=== PATIENT | male | born 2000 | race Two or more races ===

== ENCOUNTER 2021-12-28 15:54 | Observation (INO) ==
[2021-12-28] MEDS ORDERED: SODIUM CHLORIDE 0.9% 500 ML IV STA (16:00)
[2021-12-28 16:37] LABS: Basophils # (auto) 0.07 K/uL (0-0.2); Basophils % (auto) 0.6 %; Eosinophils # (auto) 0.21 K/uL (0-0.50); Eosinophils % (auto) 1.7 %; Hematocrit (blood only) 45.7 % (40.1-51.0); Hemoglobin 15.4 g/dl (14.0-18.0); Immature Granulocytes # (auto) 0.04 K/uL (0.00-0.02); Immature Granulocytes % (auto) 0.3 %; Lymphocytes # (auto) 2.57 K/uL (1.2-3.4); Lymphocytes % (auto) 21.3 %; Mean Corpuscular Hemoglobin 27.3 pg (25.0-34.0); Mean Corpuscular Hgb Conc 33.7 g/dL (32.0-36.0); Mean Corpuscular Volume 80.9 fL (80.0-100.0); Mean Platelet Volume 10.1 fL (9.4-12.4); Monocytes # (auto) 0.77 K/uL (0.24-0.82); Monocytes % (auto) 6.4 %; Neutrophils # (auto) 8.41 K/uL (1.4-6.5); Neutrophils % (auto) 69.7 %; Platelet Count 266 K/uL (130-400); RDW Coefficient of Variation 12.4 % (11.5-14.5); RDW Standard Deviation 36.4 fL (36.4-46.3); Red Blood Count 5.65 M/uL (4.63-6.08); White Blood Count 12.07 K/ul (4.8-10.8)
[2021-12-28 16:55] LABS: Albumin Globulin Ratio 1.3 (0.9-2); Albumin Level 4.6 gm/dl (3.4-5.0); BUN Creatinine Ratio 9.2 (10-20); Bilirubin,Total 0.7 mg/dl (0.2-1.0); Calcium 9.5 mg/dl (8.5-10.1); Est GFR (African American) 126.3 ml/min; Globulin 3.5 gm/dl (2.5-4.0); Potassium 3.3 mmol/L (3.5-5.1); Total Protein 8.1 gm/dl (6.0-8.3)
[2021-12-28] MEDS ORDERED: MoRPHine SULFATE 4 MG/ML 1 ML CARP\\VIAL IV STA (17:13)
[2021-12-28] MEDS ORDERED: ONDANSETRON INJ 2 MG/ML 2 ML VIAL IV STA (17:13)
--- NOTE | 2021-12-28 17:16 | Emergency Department Note ---
Impression & Plan Acute appendicitis with localized peritonitis without abscess ED Provider Note NAME: ZULEMA AYALA AGE: 21 SEX: M : 2000 ARRIVES VIA: Walk-In INFORMANT: Patient, ED PROVIDER(S): Antione Bedoya DO CHIEF COMPLAINT: Abdominal pain HPI: The patient is a 21-year-old male who presented to the emergency department for an evaluation of abdominal pain. The patient states that he started having abdominal pain earlier today. The patient started having epigastric pain initially. The patient states the pain is epigastric in nature and went across the top of the abdomen. He then noticed abdomen pain in the lower abdomen. He denies having any vomiting. He said no black or bloody bowel moods. He did have 1 episode of emesis. The pain did not change significantly after the episode of emesis. He notices no fever. Has not been seen by provider prior to coming to the emergency department. He tried [id number] medication without relief. He states the pain is moderate to severe and worsens with ambulation as well as palpation over the right lower quadrant. ROS: See above HPI for pertinent positives & negatives. A total of 10 systems reviewed and were otherwise negative. PAST MEDICAL HISTORY: See Below PAST SURGICAL HISTORY: See Below FAMILY HISTORY: See Below SOCIAL HISTORY: See Below HOME MEDICATIONS: See Below ALLERGIES: See Below VITALS: See Below PHYSICAL EXAMINATION: GENERAL: Patient is awake alert in no acute distress patient is resting comfortably and showing no signs of anxiety EYES: The conjunctivae are clear. The pupils are round and reactive. EARS, NOSE, MOUTH AND THROAT: The nose is without any evidence of any deformity. Mucous membranes are moist. Tongue is midline. NECK: The neck is nontender and supple. RESPIRATORY: Normal respiratory effort is noted there is no evidence of wheezing rhonchi or rales CARDIOVASCULAR: Regular rate and rhythm noted there no murmurs rubs or gallops normal S1 normal S2. GASTROINTESTINAL: The abdomen was soft and nondistended. There is right lower quadrant tenderness to palpation. There is no significant rigidity. MUSCULOSKELETAL/EXTREMITIES: There is no evidence of gross deformity full range of motion is noted in the hips and shoulders. SKIN: There is no obvious evidence of any rash. There are no petechiae, pallor or cyanosis noted. NEUROLOGIC: Patient is awake alert and oriented x3. Gait was steady. MEDICAL DECISION MAKING: The patient is a 21-year-old male who presented to the emergency department for an evaluation of abdominal pain. The patient's history and physical exam appear to be consistent with possible appendicitis. The patient's white blood cell count was elevated. CT scan of the abdomen and pelvis was obtained and appear to be consistent with appendicitis. I discussed the patient's laboratory and radiographic studies with the on-call general surgeon. They have agreed to evaluate the patient in the emergency department for further management and disposition. He was treated with IV fluids and IV pain medication. Triage Nursing notes reviewed. Prior medical records reviewed Vital Signs: reviewed and remarkable for tachycardia. Differential diagnosis: Etiologies such as appendicitis, diverticulitis, obstruction, inflammatory bowel disease, renal colic, PUD, biliary pathology, pancreatitis, mesenteric ischemia, aortic pathology, infections, genitourinary, UTI, perforated viscus, as well as others were entertained. ER treatment provided: See below Diagnostics interpreted by me: ECG: none Cardiac Monitoring: An order was placed for continuous cardiac monitoring. The monitor shows a rate of 105 bpm with sinus tachycardia Laboratory studies: As stated above and show below. Imaging studies: See below Consultation(s): I discussed this case with Dr. Beltrán who is on-call for the general surgical group. Past Med/Surg History Medical History (Updated 12/28/21 @ 23:18 by Antione Bedoya DO) No significant medical problems Surgical History (Updated 12/28/21 @ 19:21 by Jayme Seaman MD) No significant past surgical history Social History Smoking Status: Never smoker Second Hand Exposure: No; Do You Dip or Chew Tobacco: No; Tobacco Cessation Education Requested by Patient: No Hx Alcohol Use: No Hx Substance Use: No Preferred Language: Kittitian Communication Ability: Effective Psych Tech Required: No Beliefs That Will Affect Care: Tenriism Tenriism Beliefs: No Alcohol, or pork products and Cultural Current Living Situation: Other Current Living Situation Comment: off campus housing Other Information That Helps Us Care for You: No Feels Safe at Home: Yes Safety Concerns: Feels Safe At This Time Assistive Devices: None Allergies Allergies Allergy/AdvReac Type Severity Reaction Status Date / Time No Known Allergies Allergy Unverified 12/28/21 19:38 Results & Data (ED) Vital Signs Vital Signs - 24 hr 12/28/21 15:57 12/28/21 18:00 12/28/21 19:01 Temperature 36.8 C Temperature Source Temporal Artery Scan Pulse Rate 90 95 H Pulse Rate [Apical] 110 H Pulse Rhythm [Apical] Pulse Strength [Apical] Respiratory Rate 18 20 16 Respiratory Effort / Characteristics Non-Labored Spontaneous Respiratory Depth Normal Respiratory Pattern Regular Blood Pressure 92/56 L 130/76 Blood Pressure [Right Arm] 130/76 Blood Pressure Mean 68 Blood Pressure Mean [Right Arm] 94 Blood Pressure Position [Right Arm] Sitting Pulse Oximetry 97 97 96 Oxygen Delivery Method Room Air Room Air Room Air Sepsis Recent Fever Within 48 Hours No Sepsis New/Unexplained Change in Mental Status No Sepsis Action Taken by Nursing No Action Required 12/28/21 19:10 Temperature 37 C Temperature Source Oral Pulse Rate Pulse Rate [Apical] 118 H Pulse Rhythm [Apical] Regular Pulse Strength [Apical] Normal Respiratory Rate 18 Respiratory Effort / Characteristics Non-Labored Spontaneous Respiratory Depth Normal Respiratory Pattern Regular Blood Pressure Blood Pressure [Right Arm] 133/89 Blood Pressure Mean Blood Pressure Mean [Right Arm] 103 Blood Pressure Position [Right Arm] Sitting Pulse Oximetry 97 Oxygen Delivery Method Room Air Sepsis Recent Fever Within 48 Hours Sepsis New/Unexplained Change in Mental Status Sepsis Action Taken by Assisted Medications Current Medication List: was personally reviewed by me Laboratory Data Attestation: I reviewed the patient's lab results. Result diagrams: 12/28/21 16:22 12/28/21 16:22 Lab Results 12/28/21 12/28/21 12/28/21 Range/Units 16:22 16:22 18:17 WBC 12.07 H (4.8-10.8) K/ul RBC 5.65 (4.63-6.08) M/uL Hgb 15.4 (14.0-18.0) g/dl Hct 45.7 (40.1-51.0) % MCV 80.9 (80.0-100.0) fL MCH 27.3 (25.0-34.0) pg MCHC 33.7 (32.0-36.0) g/dL RDW Std Deviation 36.4 (36.4-46.3) fL RDW Coeff of Edwin 12.4 (11.5-14.5) % Plt Count 266 (130-400) K/uL MPV 10.1 (9.4-12.4) fL Immature Gran % (Auto) 0.3 % Neut % (Auto) 69.7 % Lymph % (Auto) 21.3 % Marin % (Auto) 6.4 % Eos % (Auto) 1.7 % Baso % (Auto) 0.6 % Neut # (Auto) 8.41 H (1.4-6.5) K/uL Lymph # (Auto) 2.57 (1.2-3.4) K/uL Marin # (Auto) 0.77 (0.24-0.82) K/uL Eos # (Auto) 0.21 (0-0.50) K/uL Baso # (Auto) 0.07 (0-0.2) K/uL Immature Gran # (Auto) 0.04 H (0.00-0.02) K/uL Sodium 136 (136-145) mmol/L Potassium 3.3 L (3.5-5.1) mmol/L Chloride 105 (98-107) mmol/L Carbon Dioxide 25 (21-32) mmol/L Anion Gap 6 (3-11) BUN 9 (6-23) mg/dl Creatinine 0.98 (0.6-1.4) mg/dl Est Cr Clr Drug Dosing 155.0 ml/min Est GFR ( Amer) 126.3 ml/min Est GFR (Non-Af Amer) 109.0 ml/min BUN/Creatinine Ratio 9.2 L (10-20) Glucose 104 H (70-99(Fasting)) mg/dl Calcium 9.5 (8.5-10.1) mg/dl Total Bilirubin 0.7 (0.2-1.0) mg/dl AST 19 (13-39) U/L ALT 30 (7-52) U/L Alkaline Phosphatase 88 (34-104) U/L Total Protein 8.1 (6.0-8.3) gm/dl Albumin 4.6 (3.4-5.0) gm/dl Globulin 3.5 (2.5-4.0) gm/dl Albumin/Globulin Ratio 1.3 (0.9-2) Lipase 15 (11-82) U/L SARS-CoV-2, RNA, NAAT NEGATIVE (NEGATIVE) Administered Medications Lactated Ringer's (Lr) 1,000 mls @ 75 mls/hr IV .[id number] MICHEL Stop: 01/27/22 21:56 Last Admin: 12/28/21 22:32 Dose: 75 mls/hr Documented By: Ketorolac Tromethamine (Ketorolac 30 Mg/Ml Vial) 30 mg IV Q6H PRN PRN Reason: Pain & Pre PT Stop: 01/02/22 21:56 Last Admin: 12/28/21 22:30 Dose: 30 mg Documented By: Discontinued Medications Bupivacaine HCl (Bupivacaine 0.5 % 5 Mg/1 Ml Mpf 30ml Vial) Confirm Administered Dose 30 ml .ROUTE .STK-MED ONE Stop: 12/28/21 18:53 Last Admin: 12/28/21 21:07 Dose: 27 ml Documented By: AVILA Epinephrine HCl (Epinephrine Inj 1 Mg/Ml Amp) Confirm Administered Dose 1 mg .ROUTE .STK-MED ONE Stop: 12/28/21 18:53 Last Admin: 12/28/21 20:42 Dose: 0.15 mg Documented By: AVILA Sodium Chloride (Nss) 500 mls @ 999 mls/hr IV .Q31M STA Stop: 12/28/21 16:30 Last Infusion: 12/28/21 22:18 Dose: 0 mls/hr Documented By: Admin: 12/28/21 18:06 Dose: 999 mls/hr Documented By: SOLA Piperacillin Sod/Tazobactam (Sod 3.375 gm/ Dextrose) 100 ml in 115 mls @ 230 mls/hr IV NOW STA Stop: 12/28/21 20:08 Last Infusion: 12/28/21 22:18 Dose: 0 mls/hr Documented By: Admin: 12/28/21 20:05 Dose: 230 mls/hr Documented By: WYATT Ioversol (Optiray 320 100ml) 95 ml IV ONCE ONE Stop: 12/28/21 17:34 Last Admin: 12/28/21 17:34 Dose: 95 ml Documented By: IDRIS Morphine Sulfate (Morphine Sulfate 4 Mg/Ml 1 Ml Carp\Vial) 4 mg IV NOW STA Stop: 12/28/21 17:14 Last Admin: 12/28/21 18:10 Dose: 4 mg Documented By: SOLA Ondansetron HCl (Ondansetron Inj 2 Mg/Ml 2 Ml Vial) 4 mg IV NOW STA Stop: 12/28/21 17:14 Last Admin: 12/28/21 18:07 Dose: 4 mg Documented By: KK Imaging Data Radiologist's Impression: Abdomen/Pelvis CT 12/28/21 17:13 CT abd pelvis IV con only CLINICAL HISTORY: RLQ pain TECHNIQUE: Helical axial images of the abdomen and pelvis were obtained and displayed. Automated dose lowering techniques and/or adjustment according to patient size were utilized for this exam. This exam was performed with intravenous contrast. CT DOSE: 1294.23 mGy.cm COMPARISON: None available at the time of this dictation. FINDINGS: Lower chest: No acute abnormality Liver: Hepatic steatosis is noted. Gallbladder and biliary tree: No calcified gallstones. Normal caliber wall. No intra- or extrahepatic biliary ductal dilation. Pancreas: Unremarkable, no focal lesions. Spleen: Unremarkable. Adrenals: Unremarkable. Kidneys and ureters: Unremarkable. Bladder: Limited evaluation due to underdistention. Reproductive organs: Unremarkable. Bowel: Appendicolith is seen with a distended appendix measuring up to 15 mm in diameter. Lymph nodes Retroperitoneal: Unremarkable. Mesenteric: Tiny right lower quadrant lymph nodes are seen. Pelvic: Unremarkable. Peritoneum: Minimal fat stranding is seen in the right lower quadrant. Vessels: Unremarkable. Abdominal wall: Unremarkable. Bones: Unremarkable. IMPRESSION: Findings compatible with acute appendicitis with appendicolith. No perforation or surrounding abscess is seen. ACT 112: Negative or not required by law. Electronically signed by: Rufus Harris M.D. 12/28/2021 5:41 PM Discharge Plan Visit Data Chief Complaint: Abdominal Pain Stated Complaint: ABDOMINAL PAIN, DIZZY ED Provider: Antione Bedoya Discharge Problem: Acute appendicitis with localized peritonitis without abscess Patient Disposition: Admitted As Inpatient Discharge Instructions Interventions: ED Discharge Assessment Last Done: 12/28/21 19:01 : Acute appendicitis with localized peritonitis without abscess Qualifiers: Appendicitis gangrene presence: unspecified whether gangrene present Appendicitis perforation presence: without perforation Qualified Code(s): K35.30 - Acute appendicitis with localized peritonitis, without perforation or gangrene
[2021-12-28] MEDS ORDERED: OPTIRAY 320 100ml IV ONE (17:33)
--- NOTE | 2021-12-28 17:42 | CT Scan Report ---
CT abd pelvis IV con only CLINICAL HISTORY: RLQ pain TECHNIQUE: Helical axial images of the abdomen and pelvis were obtained and displayed. Automated dose lowering techniques and/or adjustment according to patient size were utilized for this exam. This e xam was performed with intravenous contrast. CT DOSE: 1294.23 mGy.cm COMPARISON: None available at the time of this dictation. FINDINGS: Lower chest: No acute abnormality Liver: Hepatic steatosis is noted. Gallbladder and biliary tree: No calcified gallstones. Normal caliber wall. No intra- or extrahepatic biliary ductal dilation. Pancreas: Unremarkable, no focal lesions. Spleen: Unremarkable. Adrenals: Unremarkable. Kidneys and ureters: Unremarkable. Bladder: Limited evaluation due to underdistention. Reproductive organs: Unremarkable. Bowel: Appendicolith is seen with a distended appendix measuring up to 15 mm in diameter. Lymph nodes Retroperitoneal: Unremarkable. Mesenteric: Tiny right lower quadrant lymph nodes are seen. Pelvic: Unremarkable. Peritoneum: Minimal fat stranding is seen in the right lower quadrant. Vessels: Unremarkable. Abdominal wall: Unremarkable. Bones: Unremarkable. IMPRESSION: Findings compatible with acute appendicitis with appendicolith. No perforation or surrounding abscess is seen. ACT 112: Negative or not required by law. Electronically signed by: Rufus Harris M.D. 12/28/2021 5:41 PM
--- NOTE | 2021-12-28 18:47 | History & Physical Report ---
Date of Service December 28, 2021 Assessment & Plan (1) Acute appendicitis with localized peritonitis without abscess: Plan 21-year-old gentleman presents with acute appendicitis. We discussed the risks and benefits of laparoscopic appendectomy. All his questions were answered, and he is agreeable to proceed. Consent has been obtained. We will take him to the operating room at the earliest convenience. History of Present Illness Primary Care Provider: NO PCP 21-year-old presents with right lower quadrant pain for the past 18 hours. It woke him from sleep. He did have nausea and vomited once today. He ate earlier this morning. He has not eaten since. The pain began in the upper abdomen and has radiated down to the right side. There is no back pain. He denies fevers or chills. CT scan demonstrates appendicitis with appendicolith, no evidence of rupture. Past Med/Surg History Social History Smoking Status: Never smoker Feels Safe at Home: Yes Review of Systems Review of Systems: All systems reviewed & are unremarkable except as noted in HPI & below Physical Exam Constitutional: WD/WN, vitals as above Neck: trachea midline, no thyromegaly Respiratory: normal respiratory effort; no respiratory distress and no labored breathing Cardiovascular: Rate/Rhythm: regular rate and regular rhythm Gastrointestinal (Abdomen): Inspection/Auscultation: abdomen normal to inspection; abdomen not distended and no abdominal surgical scar Percussi on/Palpation: + abdomen tender (Right lower quadrant) and abdomen soft; no guarding and abdomen not rigid Musculoskeletal: Extremities: no cyanosis and no clubbing Skin: no rashes, warm and dry Psychiatric: A+Ox3, euthymic affect Results & Data Results & Data ([facility]) Vital Signs (Past 12 Hours) Vital Signs Temp Pulse Pulse Resp BP BP Pulse Ox 12/28/21 18:00 110 H 20 130/76 97 12/28/21 15:57 36.8 C 90 18 92/56 L 97 O2 Del Method 12/28/21 18:00 Room Air 12/28/21 15:57 Room Air Laboratory Results 12/28/21 12/28/21 12/28/21 Range/Units 18:17 16:22 16:22 WBC 12.07 H (4.8-10.8) K/ul RBC 5.65 (4.63-6.08) M/uL Hgb 15.4 (14.0-18.0) g/dl Hct 45.7 (40.1-51.0) % MCV 80.9 (80.0-100.0) fL MCH 27.3 (25.0-34.0) pg MCHC 33.7 (32.0-36.0) g/dL RDW Std Deviation 36.4 (36.4-46.3) fL RDW Coeff of Edwin 12.4 (11.5-14.5) % Plt Count 266 (130-400) K/uL MPV 10.1 (9.4-12.4) fL Immature Gran % (Auto) 0.3 % Neut % (Auto) 69.7 % Lymph % (Auto) 21.3 % Lares % (Auto) 6.4 % Eos % (Auto) 1.7 % Baso % (Auto) 0.6 % Neut # (Auto) 8.41 H (1.4-6.5) K/uL Lymph # (Auto) 2.57 (1.2-3.4) K/uL Lares # (Auto) 0.77 (0.24-0.82) K/uL Eos # (Auto) 0.21 (0-0.50) K/uL Baso # (Auto) 0.07 (0-0.2) K/uL Immature Gran # (Auto) 0.04 H (0.00-0.02) K/uL Sodium 136 (136-145) mmol/L Potassium 3.3 L (3.5-5.1) mmol/L Chloride 105 (98-107) mmol/L Carbon Dioxide 25 (21-32) mmol/L Anion Gap 6 (3-11) BUN 9 (6-23) mg/dl Creatinine 0.98 (0.6-1.4) mg/dl Est Cr Clr Drug Dosing 155.0 ml/min Est GFR ( Amer) 126.3 ml/min Est GFR (Non-Af Amer) 109.0 ml/min BUN/Creatinine Ratio 9.2 L (10-20) Glucose 104 H (70-99(Fasting)) mg/dl Calcium 9.5 (8.5-10.1) mg/dl Total Bilirubin 0.7 (0.2-1.0) mg/dl AST 19 (13-39) U/L ALT 30 (7-52) U/L Alkaline Phosphatase 88 (34-104) U/L Total Protein 8.1 (6.0-8.3) gm/dl Albumin 4.6 (3.4-5.0) gm/dl Globulin 3.5 (2.5-4.0) gm/dl Albumin/Globulin Ratio 1.3 (0.9-2) Lipase 15 (11-82) U/L SARS-CoV-2, RNA, NAAT NEGATIVE (NEGATIVE) Diagnostic Findings CT abd pelvis IV con only CLINICAL HISTORY: RLQ pain TECHNIQUE: Helical axial images of the abdomen and pelvis were obtained and displayed. Automated dose lowering techniques and/or adjustment according to patient size were utilized for this exam. This exam was performed with intravenous contrast. CT DOSE: 1294.23 mGy.cm COMPARISON: None available at the time of this dictation. FINDINGS: Lower chest: No acute abnormality Liver: Hepatic steatosis is noted. Gallbladder and biliary tree: No calcified gallstones. Normal caliber wall. No intra- or extrahepatic biliary ductal dilation. Pancreas: Unremarkable, no focal lesions. Spleen: Unremarkable. Adrenals: Unremarkable. Kidneys and ureters: Unremarkable. Bladder: Limited evaluation due to underdistention. Reproductive organs: Unremarkable. Bowel: Appendicolith is seen with a distended appendix measuring up to 15 mm in diameter. Lymph nodes Retroperitoneal: Unremarkable. Mesenteric: Tiny right lower quadrant lymph nodes are seen. Pelvic: Unremarkable. Peritoneum: Minimal fat stranding is seen in the right lower quadrant. Vessels: Unremarkable. Abdominal wall: Unremarkable. Bones: Unremarkable. IMPRESSION: Findings compatible with acute appendicitis with appendicolith. No perforation or surrounding abscess is seen.
[2021-12-28] MEDS ORDERED: BUPIVACAINE 0.5 % 5 MG/1 ML MPF 30ML VIAL ONE (18:52)
[2021-12-28] MEDS ORDERED: EPINEPHrine INJ 1 MG/ML AMP ONE (18:52)
--- NOTE | 2021-12-28 19:22 | Anesthesiology Consultation ---
Date of Service December 28, 2021 Assessment & Plan (1) Encounter for pre-operative examination: Chart Review Chart Review: Acceptable Risk for Surgery History Surgery Operation Date: 12/28/21 19:00 Proposed Procedures p Laparoscopic Appendectomy - Leonid Beltrán MD Height/Weight Height: 5 ft 10.08 in Weight: 122 kg Past Medical History Medical History (Updated 12/28/21 @ 19:22 by Jayme Seaman MD) No significant medical problems Past Surgical History Surgical History (Updated 12/28/21 @ 19:21 by Jayme Seaman MD) No significant past surgical history Social History Smoking Status: Never smoker Physical Exam Vital Signs Last Vital Signs Temp 36.8 C 12/28/21 15:57 Pulse 95 H 12/28/21 19:01 Resp 16 12/28/21 19:01 BP 130/76 12/28/21 19:01 Pulse Ox 96 12/28/21 19:01 O2 Del Method 12/28/21 19:01 Testing Laboratory Results 12/28/21 16:22 12/28/21 16:22
[2021-12-28] MEDS ORDERED: PIPERACILLIN IV SCH (19:25)
[2021-12-28] MEDS ORDERED: DEXTROSE 5% IV SCH (19:25)
[2021-12-28] MEDS ORDERED: TAZOBACTAM IV SCH (19:25)
[2021-12-28] MEDS ORDERED: PIPERACILLIN/TAZOBACTAM 3.375 GM in DEXTROSE 5% 100 ML/100 ML BAG IV STA (19:39)
[2021-12-28] MEDS ORDERED: fentaNYL citrate 100 MCG/2 ML VIAL ONE ×2 (19:40→21:01)
[2021-12-28] MEDS ORDERED: MIDAZOLAM HCL 1 MG/ML 2ML VIAL ONE (19:40)
[2021-12-28] MEDS ORDERED: fentaNYL citrate 100 MCG/2 ML VIAL IV PRN (20:03)
[2021-12-28] MEDS ORDERED: PROMETHAZINE HCL 12.5 MG in SODIUM CHLORIDE 0.9% 50 ML IV PRN ×2 (20:03→21:57)
[2021-12-28] MEDS ORDERED: ONDANSETRON INJ 2 MG/ML 2 ML VIAL IV PRN ×2 (20:03→21:57)
[2021-12-28] MEDS ORDERED: LABETALOL HCL IV 5 MG/ML 20ML IV PRN (20:03)
[2021-12-28] MEDS ORDERED: KETOROLAC 30 MG/ML VIAL IV PRN ×2 (20:03→21:57)
[2021-12-28] MEDS ORDERED: ATROPINE SULFATE 0.1 MG/ML 10ML SYR IV PRN (20:03)
[2021-12-28] MEDS ORDERED: ONDANSETRON INJ 2 MG/ML 2 ML VIAL ONE (20:46)
[2021-12-28] MEDS ORDERED: DEXAMETHASONE SOD INJ 4 MG/ML VIAL ONE (20:46)
[2021-12-28] MEDS ORDERED: PROPOFOL IV EMULSION 10 MG/ML 20 ML VIAL IV ONE (20:46)
[2021-12-28] MEDS ORDERED: ROCURONIUM BROMIDE 10 MG/ML 5 ML VIAL IV ONE (20:46)
[2021-12-28] MEDS ORDERED: LIDOCAINE 2% MPF LOCAL 5 ML VIAL INFIL ONE (20:46)
[2021-12-28] MEDS ORDERED: SUCCINYLCHOLINE CHLORIDE 20 MG/ML 10 ML VIAL IV ONE (20:46)
[2021-12-28] MEDS ORDERED: NEOSTIGMINE METHYLSULFATE 1 MG/ML 10ML VIAL ONE (20:46)
[2021-12-28] MEDS ORDERED: GLYCOPYRROLATE 0.2 MG/ML VIAL ONE (20:46)
--- NOTE | 2021-12-28 21:11 | Operative Report ---
Post Operative Report Pre & Post Diagnosis Operation Date: 12/28/21 19:00 Pre-Op Diagnosis: Acute appendicitis with localized peritonitis without abscess Post-Op Diagnosis: Acute appendicitis with localized peritonitis without abscess I identified the patient and participated in the time-out.: Yes Procedure Operation Date: 12/28/21 19:00 Actual Procedures p Laparoscopic Appendectomy(Not Applicable) - Leonid Beltrán MD Surgeon Leonid Beltrán MD Coal Feeder Operator None Estimated Blood Loss 5 Findings Consistent with Post-Op Diagnosis Acute appendicitis Specimens Appendix Drains None Anesthesia Type General Complications No immediate complications Description of Procedure The patient was taken to the operating room, and placed supine on the operating table. A timeout was performed, perioperative antibiotics were administered, SCD boots were placed. After adequate anesthesia and analgesia was obtained, the abdomen was prepped and draped in the normal sterile fashion. A 1 cm incision was made in the supraumbilical region and carried down to the level of the fascia. A trach hook was used to grasp the fascia and elevated and a varies needle was used to enter the abdominal cavity. The abdomen was insufflated to a pressure of 15 mmHg, and a 5 mm trocar was placed in this location. A 5 mm 30 degree laparoscope was placed into the abdominal cavity, and the abdomen was surveyed. The patient was placed in Trendelenburg and slightly to the left. One 5 mm trocar was placed in the right upper quadrant, and one 12 mm trocar was placed in the left lower quadrant under direct visualization. The right colon was identified and traced down to the cecum. The appendix was identified and elevated anteriorly and medially. A window was created at the base of the appendix with a [place] dissector. The Endo TUSHAR stapler was used to transect the appendix at its base through noninflamed tissue, and subsequently the mesoappendix. The appendix was placed in an Endo Catch bag, and removed via the left lower quadrant port site. Attention was turned to hemostasis, which was excellent. The abdomen was copiously irrigated and suctioned free, and again hemostasis was found to be excellent. All trochars removed under direct visualization. The abdomen was desufflated. The fascia in the 12 mm port site was closed with a 0 Vicryl suture. The skin was closed with a running 4-0 Monocryl subcuticular stitch. Dermabond was applied. The patient tolerated the procedure without complication, and was transferred in stable condition to the PACU. All instrument, needle, and sponge counts were correct at the end of the case. I attest to the content of the Intraoperative Record and any orders documented therein. Any exceptions are noted below.
--- NOTE | 2021-12-28 21:45 | Anesthesiology Progress Note ---
Date of Service December 28, 2021 Anesthesia Post Procedure Vital Signs Vital Signs: Temp Pulse Pulse Resp BP BP Pulse Ox 12/28/21 21:40 36.5 C 98 H 22 141/81 H 97 12/28/21 21:30 100 H 16 135/89 97 12/28/21 21:20 36.5 C 97 H 20 114/98 96 12/28/21 19:10 37 C 118 H 18 133/89 97 12/28/21 19:01 95 H 16 130/76 96 12/28/21 18:00 110 H 20 130/76 97 12/28/21 15:57 36.8 C 90 18 92/56 L 97 O2 Del Method O2 Flow Rate 12/28/21 21:40 Room Air 12/28/21 21:30 Room Air 12/28/21 21:20 Oxymask 6 12/28/21 19:10 Room Air 12/28/21 19:01 Room Air 12/28/21 18:00 Room Air 12/28/21 15:57 Room Air Pain Intensity Right Lower Abdomen: Pain Intensity: 6 Transfer of Care Handoff Completed per policy Notes Mental Status: alert / awake / arousable Patient Amnestic to Procedure: Yes Nausea / Vomiting: adequately controlled Pain: adequately controlled Airway Patency, RR, SpO2: stable & adequate BP & HR: stable & adequate Hydration State: stable & adequate Anesthetic Complications: no major complications apparent
[2021-12-28] MEDS ORDERED: diphenhydrAMINE Capsule 25 MG CAP PO PRN (21:57)
[2021-12-28] MEDS ORDERED: LACTATED RINGER'S 1,000 ML IV SCH (21:57)
[2021-12-28] MEDS ORDERED: oxyCODONE/ACETAMINOPHEN 5mg/325mg TAB PO PRN (21:57)
[2021-12-28] MEDS ORDERED: MoRPHine SULFATE 2 MG/ML CARP IV PRN (21:57)
[2021-12-29] MEDS ORDERED: ENOXAPARIN INJ 40 MG/0.4 ML SYR SQ SCH (07:00)
--- NOTE | 2021-12-29 09:28 | Discharge Summary ---
Date of Service December 29, 2021 Admission HPI Per Admitting Provider 21-year-old presents with right lower quadrant pain for the past 18 hours. It woke him from sleep. He did have nausea and vomited once today. He ate earlier this morning. He has not eaten since. The pain began in the upper abdomen and has radiated down to the right side. There is no back pain. He denies fevers or chills. CT scan demonstrates appendicitis with appendicolith, no evidence of rupture. Principal Diagnosis Acute appendicitis with appendicolith Discharge Exam Constitutional WD/WN, vitals as above no acute distress and not ill appearing Neck normal visual inspection and trachea midline Respiratory normal respiratory effort; no respiratory distress and no labored breathing Gastrointestinal (Abdomen) Inspection/Auscultation: abdomen normal to inspection and + abdominal surgical incision (clean/dry/intact with dermabond); abdomen not distended Percussion/Palpation: abdomen soft; abdomen nontender, no guarding and abdomen not rigid Skin no rashes, warm and dry Psychiatric A+Ox3, euthymic affect Discharge Data Allergies Allergy/AdvReac Type Severity Reaction Status Date / Time No Known Allergies Allergy Unverified 12/28/21 19:38 Consultations 12/28/21 17:43 Consult General Surgery Stat Procedures Performed Operation Date: 12/28/21 19:00 Actual Procedures p Laparoscopic Appendectomy(Not Applicable) - Leonid Beltrán MD Ordered Studies 12/28/21 17:13 CT abd pelvis IV con only Stat Hospital Course (1) Acute appendicitis with localized peritonitis without abscess: Plan Patient was taken to operating room for laparoscopic appendectomy by Dr. Beltrán. Patient tolerated procedure well and was transferred to recovery then to medical/surgical floor for postop care. Diet was advanced as tolerated, activity as tolerated, pain management with PO Percocet, IV Toradol , and IV morphine as needed, incentive spirometry and scds were ordered. Patient evaluated in morning of POD # 1, afebrile, vss, minimal postop pain which was controlled, tolerated regular diet, preoperative pain resolved. Patient was discharged home on POD # 1 in stable condition. Total Time Total Time Spent Total Time Spent (In Minutes): 30 Total Time Includes: Examination of the Patient, Discharge Planning and Medication Reconciliation Discharge Plan Discharge Items Patient Disposition: Home - Self-Care Reason For Visit: ACUTE APPENDICITIS Discharge Diagnosis: Acute appendicitis Activity: Per Instructions section Non-emergency contact: Surgeon Call non-emergency contact if: you have any medication questions, your pain is not controlled, your pain is worsening, your pain is concerning for you, you have a fever, your temperature is above 101, your wound has increased redness, your wound has increased drainage and your wound pain has increased Follow-up/Referrals: Leonid Beltrán MD [Physician] - 01/13/22 10:15 am PCP,NO [Primary Care Provider] - Diet: Regular Addtl Attending Provider Instructions: Post-Surgical ~Discharge Instructions Activity Recommendations: - lifting limitation: (20 pounds for 3-4 weeks), - exercise/sex/sports limit: (nonstrenuous for 2 weeks), - driving or machine use limit: (none for 1 week or until pain free), - Shower/bathe limit: (may shower beginning tonight) Diet: - Resume previous diet SPECIAL CARE INSTRUCTIONS: - May shower tonight. Let water run over area and pat dry. No submerging incisions underwater for 2 weeks (no swimming, bathing, hot tubs) - Surgical glue on incisions will fall off on its own. Do not pick at it as this can cause infection - Call the surgeon's office with any questions or concerns - - (ex. temperature higher than 101 degrees F, excessive bleeding or pain). MEDICATIONS: - Resume previous medications unless instructed otherwise by your surgeon. - May alternate extra strength Tylenol and Advil as needed for pain -650 mg Tylenol every 6 hours as needed - Advil 600 mg every 6 hours as needed (take with food and limit continuous use for no more than 3 days) FOLLOW UP VISIT: - If not already scheduled, please call the office to schedule a two week follow-up appointment. Office number For your upcoming travel, please wear ALLISON stockings during your plane flights and any long car travel. These will help circulate blood flow in the veins in your lower legs. Would also recommend walking aisle of plane ride if possible and getting out of car every 1-2 hours to walk 5-10 minutes to help with blood circulation to avoid blood clots from forming. Pending Studies at Discharge: Yes (appendix pathology, will be reviewed at follow-up visit) Stand-Alone Forms: [facility], Smoking Cessation Medications and DC Order Discharge Orders: Discharge Order (Routine); Ordered 12/29/21 Ordered By: Kaleigh Tucker/Other Patient Handouts: DVT Post Op Prevention, ED Joshua Herrera Admission Data Admit Date/Time: 12/28/21 21:14 Attending Provider: Leonid Beltrán Admit Provider: Leonid Beltrán Primary Care Provider: PCP,NO Other Providers: Leonid Beltrán Other Interventions: Discharge Summary Assessment (RN) Last Done: 12/29/21 09:37
== END 2021-12-29 11:02 | disposition home or self-care (01) ==
LOC: EDBD → ED 15:54 → OR 19:01 → 3W 19:01
DX: K35.30 Acute appendicitis with localized peritonitis, without perforation or gangrene